=== PATIENT | female | born 1955 | race Caucasian/White ===

== ENCOUNTER 2022-09-24 14:46 | Outpatient (CLI) | payer MEDICARE, BC, SELFPAY | END 2022-09-24 14:47 | disposition home or self-care (01) | PROVIDERS: PCP Family Medicine; Visit Provider Family Medicine | DX: I47.1 Supraventricular tachycardia (principal); I51.7 Cardiomegaly; I34.0 Nonrheumatic mitral (valve) insufficiency | CPT/HCPCS: 93306 ==

== ENCOUNTER 2022-11-02 20:02 | Emergency (ER) | payer MEDICARE, BC, SELFPAY ==
[2022-11-02 20:15] VITALS: BP 142/81; PULSE 67; O2SAT 100; BMI 24.0
[2022-11-02 20:41] VITALS: BP 168/82
--- NOTE | 2022-11-02 20:41 | CRLHL7_ITS ---
For Patients: As a result of the Cures Act, medical imaging exams and procedure reports are released immediately into your electronic medical record. You may view this report before your referring provider. If you have questions, please contact your health care provider. INDICATION: Tachycardia. TECHNIQUE: Chest 2 views. COMPARISON: None. FINDINGS: Lungs: Normal lung volume. No consolidation. The tracheobronchial tree and hilar structures are unremarkable. Pleura: No pleural effusion or pneumothorax. Heart and Mediastinum: Normal heart size. The great vessels of the thorax are unremarkable. Bones: No acute displaced osseous process. IMPRESSION: No consolidation. Dictated by Sahil Banda MD @ 11/02/2022 9:14:50 PM (Electronically Signed)
[2022-11-02 20:52] LABS: Basophils Absolute Auto 0.03 K/uL (0.00-0.30); Basophils Percent Auto 0.4 % (0.0-3.0); Eosinophils Absolute Auto 0.13 K/uL (0.00-0.50); Eosinophils Percent Auto 1.8 % (0.0-7.0); Hematocrit 45.6 % (33.0-51.0); Hemoglobin* 15.5 gm/dL (12.0-16.0); Immature Granulocytes Abs Auto 0.01 K/uL (0.00-0.30); Immature Granulocytes Pct Auto 0.1 %; Lymphocytes Percent Auto 45.3 % (20-44); Mean Corpuscular HGB Conc 34 gm/dL (32-36); Mean Corpuscular Hemoglobin 33 pg (26-34); Mean Corpuscular Volume 97 fL (80-100); Monocytes Percent Auto 8.5 % (0.0-11.0); Neutrophils Absolute Auto 3.14 K/uL (1.7-7.0); Neutrophils Percent Auto 43.9 % (42.0-72.0); Platelet Count* 256 K/uL (140-440); RDW Coefficient of Variation % 12.8 % (11.5-15.5); Red Blood Count 4.71 m/uL (4.00-5.20); White Blood Count* 7.17 K/uL (4.50-11.00)
[2022-11-02 21:03] LABS: Slide Review Reflex No
[2022-11-02 21:04] LABS: INR 0.81 (0.91-1.10); Partial Thromboplastin Time* 29 Seconds (23-33); Prothrombin Time 11.7 Seconds
[2022-11-02 21:06] LABS: D Dimer Quantitative* 0.38 ug/ml (0.00-0.50)
[2022-11-02 21:22] LABS: Chloride* 104 mmol/L (96-114); Potassium* 4.2 mmol/L (3.6-5.1); Sodium* 138 mmol/L (135-149)
[2022-11-02 21:24] LABS: Creatinine* 0.7 mg/dL (0.5-1.5); Estimated Glomerular Filt Rate 94 ml/min
[2022-11-02 21:25] LABS: Blood Urea Nitrogen* 30 mg/dL (7-30); Calcium* 9.6 mg/dL (8.4-10.6); Carbon Dioxide* 25 mmol/L (20-32); Glucose* 109 mg/dL (60-115)
[2022-11-02] MEDS: 0.9 % SODIUM CHLORIDE 1000 ml 1,000 ML IV (21:30)
[2022-11-02] MEDS: dilTIAZem 5 MG/ML inj 10 MG IVP (21:31)
[2022-11-02 21:37] LABS: NT Pro B Type NatriureticPept* 202 pg/mL
[2022-11-02 21:42] LABS: Magnesium* 2.2 mg/dL (1.5-2.6)
[2022-11-02 21:43] LABS: PCR FLU A Negative PCR FLU A (Negative); PCR FLU B Negative PCR FLU B (Negative); PCR RSV Negative PCR RSV (Negative)
--- NOTE | 2022-11-02 21:45 | ED_ITS ---
HPI - Arrhythmia/Palpitations General Date Seen: 11/02/22 Chief Complaint: Arrhythmia/Palpitations Stated Complaint: heart rate above 140 for over an hour Time Seen by Provider: 11/02/22 20:13 Source: patient and family Mode of arrival: ambulatory Limitations: no limitations History of Present Illness HPI narrative: Patient is a very nice 58-year-old female presents here for evaluation of an arrhythmia, this occurred last hour and a half, but promptly converted when she walked over to the gurney and stabilization room 1. She has had this approximately 5 times since August 10 of this year, is due to see cardiology in [facility] on November 11, she has had the echocardiogram done in his o patch, she has never had to have conversion as she has always been able to convert herself. Denies any chest pain with this shortness of breath, she has had no fevers chills or sweats, denies no real excessive a history of alcohol use. Nonsmoker, has no other risk factors for coronary artery disease, denies taking any cold medications, no history of any illicit substances, and this occurred during rest. MD complaint: rapid heart beat, heart racing and palpitations Onset (ago): minute(s) (90) Duration: now resolved Severity: moderate Context: occurred during rest Arrhythmia history: SVT Associated symptoms: denies other symptoms Related Data Home Medications Medication Instructions Recorded Confirmed calcium 600 mg capsule mg PO 11/02/22 denosumab 60 mg/mL subcutaneous 60 mg subcut [id number] 11/02/22 11/02/22 syringe (Prolia) Previous Rx's Medication Instructions Recorded metoprolol tartrate 25 mg tablet 25 mg PO BID #60 tabs 11/02/22 Allergies Allergy/AdvReac Type Severity Reaction Status Date / Time terconazole [From Terazol 3] Allergy Unknown Verified 11/02/22 20:20 Review of Systems Status of ROS: Reports: 10 or more systems reviewed and unremarkable except as noted in History and below Exam Narrative: Exam Narrative: On examination in room 3 she appears to be in no apparent distress, she is alert oriented, in no apparent distress, pupils are equal round reactive to light there is no scleral icterus or JVP is flat carotid upstrokes are good. Cranial nerves 3-12 are normal her chest is good air entry bilaterally with no wheezing crackles noted heart sounds no clicks murmurs or gallops her abdomen is soft and obese there is no guarding no hepatosplenomegaly. Extremities reveal no swelling no pitting edema, she otherwise feels fine. Vital signs are reviewed. Const: Vital Signs, click to edit/add: Vital Signs - 24 hr 11/02/22 20:15 11/02/22 21:54 11/02/22 20:41 Pulse Rate [Pulse Oximeter] 67 57 L Respiratory Rate 16 Blood Pressure [Le ft Upper Arm] 142/81 H 142/81 H 168/82 H Pulse Oximetry 100 99 Oxygen Delivery Me thod Room Air Room Air 11/02/22 22:58 Pulse Rate [Pulse Oximeter] 60 Respiratory Rate 10 L Blood Pressure [Le ft Upper Arm] 126/68 Pulse Oximetry 99 Oxygen Delivery Me thod Documenting provider has reviewed patient's vital signs: yes Course Course Hospital Course: Discussed with the patient, we will give her a dose of diltiazem here, this will keep her heart rate down, I think this is more likely PSVT but I did noted in his Zio patch history that there was 5 beats of V-tach, she may benefit as an outpatient to use some beta-fina, we will give her some fluids here, and I wi ll discuss with her. She was a little leery early on when I discussed with her the use of beta-blockers as it can make her tired, and there is a remote history I believe in the past of reactive airway disease. I will talk with her about this. After discussion with the patient, shared decision making was undertaken, and she would like to try a beta fina, metoprolol 25 mg p.o. b.i.d. after the risks benefits and side effects as discussed with her OB prescribed. She can start taking this tomorrow, she will return if any further issues, keep her Cardiology appointment. Vital Signs Vital signs: Initial Vital Signs Temperature Source Temporal Artery Scan 11/02/22 20:15 Pulse Rate 67 11/02/22 20:15 Blood Pressure 142/81 H 11/02/22 20:15 Blood Pressure Mean 101 11/02/22 20:15 Blood Pressure Position Supine 11/02/22 20:15 Pulse Oximetry 100 11/02/22 20:15 Oxygen Delivery Method Room Air 11/02/22 20:15 Vital Signs Pulse Rate 67 11/02/22 20:15 Blood Pressure 142/81 H 11/02/22 20:15 Pulse Oximetry 100 11/02/22 20:15 Oxygen Delivery Method Room Air 11/02/22 20:15 Pulse Rate 60 11/02/22 22:58 Respiratory Rate 10 L 11/02/22 22:58 Blood Pressure 126/68 11/02/22 22:58 Pulse Oximetry 99 11/02/22 22:58 Oxygen Delivery Method Room Air 11/02/22 21:54 MDM - Arrhythmia/Palpitations MDM Narrative Medical decision making narrative: Differential diagnosis includes but is not limited to psychosocial stress, thyroid abnormalities, CHF, SVT, atrial fibrillation, ventricular tachycardia and ventricular fibrillation. This includes the life-threatening complications of heart failure, V-tach, and VFib Medical Records Attestation: I reviewed the patient's medical records. Medical records narrative: I reviewed the records from [facility], her echo was structurally normal, with trace mitral regurgitation she had a Zio patch done which showed episodes of SVT, and 1 5 beat ventricular tachycardia, Lab Data Attestation: I reviewed the patient's lab results. Labs: Lab Results 11/02/22 11/02/22 11/02/22 Range/Units 20:18 20:21 20:49 WBC 7.17 (4.50-11.00) K/uL RBC 4.71 (4.00-5.20) m/uL Hgb 15.5 (12.0-16.0) gm/dL Hct 45.6 (33.0-51.0) % MCV 97 (80-100) fL MCH 33 (26-34) pg MCHC 34 (32-36) gm/dL RDW Coeff of Suzanne 12.8 (11.5-15.5) % Plt Count 256 (140-440) K/uL Neut % (Auto) 43.9 (42.0-72.0) % Lymph % (Auto) 45.3 H (20-44) % [place] % (Auto) 8.5 (0.0-11.0) % Eos % (Auto) 1.8 (0.0-7.0) % Baso % (Auto) 0.4 (0.0-3.0) % Neut # (Auto) 3.14 (1.7-7.0) K/uL Lymph # (Auto) 3.20 H (0.90-2.90) K/uL [place] # (Auto) 0.60 (0.00-0.90) K/UL Eos # (Auto) 0.13 (0.00-0.50) K/uL Baso # (Auto) 0.03 (0.00-0.30) K/uL INR 0.81 L (0.91-1.10) APTT 29 (23-33) Seconds D-Dimer Quant (PE/DVT) 0.38 (0.00-0.50) ug/ml Sodium 138 (135-149) mmol/L Potassium 4.2 (3.6-5.1) mmol/L Chloride 104 (96-114) mmol/L Carbon Dioxide 25 (20-32) mmol/L BUN 30 (7-30) mg/dL Creatinine 0.7 (0.5-1.5) mg/dL Estimated Creat Clear 46.50 Estimated GFR 94 ml/min Glucose 109 (60-115) mg/dL Calcium 9.6 (8.4-10.6) mg/dL Magnesium 2.2 (1.5-2.6) mg/dL NT-Pro-B Natriuret Pep 202 pg/mL TSH 3.040 (0.270-4.20) uIU/mL SARS-CoV-2 (PCR) Negative SARS-CoV-2 (Negative) Influenza Type A (PCR) Negative PCR FLU A (Negative) Influenza Type B (PCR) Negative PCR FLU B (Negative) RSV (PCR) Negative PCR RSV (Negative) POC Troponin I 0.00 L (0.01-0.04) ng/ml 11/02/22 Range/Units 22:31 WBC (4.50-11.00) K/uL RBC (4.00-5.20) m/uL Hgb (12.0-16.0) gm/dL Hct (33.0-51.0) % MCV (80-100) fL MCH (26-34) pg MCHC (32-36) gm/dL RDW Coeff of Suzanne (11.5-15.5) % Plt Count (140-440) K/uL Neut % (Auto) (42.0-72.0) % Lymph % (Auto) (20-44) % [place] % (Auto) (0.0-11.0) % Eos % (Auto) (0.0-7.0) % Baso % (Auto) (0.0-3.0) % Neut # (Auto) (1.7-7.0) K/uL Lymph # (Auto) (0.90-2.90) K/uL [place] # (Auto) (0.00-0.90) K/UL Eos # (Auto) (0.00-0.50) K/uL Baso # (Auto) (0.00-0.30) K/uL INR (0.91-1.10) APTT (23-33) Seconds D-Dimer Quant (PE/DVT) (0.00-0.50) ug/ml Sodium (135-149) mmol/L Potassium (3.6-5.1) mmol/L Chloride (96-114) mmol/L Carbon Dioxide (20-32) mmol/L BUN (7-30) mg/dL Creatinine (0.5-1.5) mg/dL Estimated Creat Clear Estimated GFR ml/min Glucose (60-115) mg/dL Calcium (8.4-10.6) mg/dL Magnesium (1.5-2.6) mg/dL NT-Pro-B Natriuret Pep pg/mL TSH (0.270-4.20) uIU/mL SARS-CoV-2 (PCR) (Negative) Influenza Type A (PCR) (Negative) Influenza Type B (PCR) (Negative) RSV (PCR) (Negative) POC Troponin I 0.00 L (0.01-0.04) ng/ml Imaging Data Chest x-ray: My impression: No acute finding Radiologist's impression: Patient: TISHA WHARTON Facility: [facility] Site . Site : 1955 Study: XRay Chest 2 VIEW-11/02/2022 9:10:28 PM Ordering Physician: Kanika Lawton Final Report: INDICATION: Tachycardia. TECHNIQUE: Chest 2 views. COMPARISON: None. FINDINGS: Lungs: Normal lung volume. No consolidation. The tracheobronchial tree and hilar structures are unremarkable. Pleura: No pleural effusion or pneumothorax. Heart and Mediastinum: Normal heart size. The great vessels of the thorax are unremarkable. Bones: No acute displaced osseous process. IMPRESSION: No consolidation. Dictated by Sahil Banda MD @ 11/02/2022 9:14:50 PM (Electronic Signature) ECG Data Attestation: I personally reviewed and interpreted this ECG as follows: ECG interpretation date: 11/02/22 Prior ECG tracings: not available for review Interpretation: EKG shows normal sinus rhythm with an incomplete run no bundle bunch block, rate is 68. Discharge Plan Discharge Clinical Impression: Palpitations, Supraventricular tachycardia Patient Disposition: Home w/ Parent or Adult Condition: Stable Instructions: Supraventricular Tachycardia (ED), Heart Palpitations (DC) Additional Instructions: Home rest follow-up with the Cardiology, start taking your medication medication tomorrow. Return if signs and symptoms of worsening. Activity Level: No Restrictions Discharge Diet: Regular Prescriptions: New metoprolol tartrate 25 mg tablet 25 mg PO BID Qty: 60 2RF No Action Prolia 60 mg/mL syringe 60 mg subcut [id number] calcium 600 mg capsule PO Follow Up/Referrals: Ade Gomez DO [Primary Care Provider] - Stand Alone Forms: MyHealth Info Instructions
[2022-11-02 21:47] LABS: SARS PCR* Negative SARS-CoV-2 (Negative)
[2022-11-02 21:54] VITALS: BP 142/81; PULSE 57; RESP 16; O2SAT 99
[2022-11-02 22:58] VITALS: BP 126/68; PULSE 60; RESP 10; O2SAT 99
== END 2022-11-02 23:35 | disposition home or self-care (01) ==
PROVIDERS: Emergency Provider Family Medicine; PCP Family Medicine
DX: I47.1 Supraventricular tachycardia (principal); R00.2 Palpitations
CPT/HCPCS: 36415; 71046; 80048; 83735; 83880; 84443; 84484; 85025; 85379; 85610; 85730; 87502; 87634; 87635; 93005; 96374; 99284; 99285; J7030

== ENCOUNTER 2023-06-29 07:31 | Outpatient (CLI) | payer MEDICARE, BC, SELFPAY ==
--- NOTE | 2023-06-29 09:10 | W.ANESCHARGE ---
Anesthesia Charges Start Date/Time Anesthesia Start Date: 06/29/23 Anesthesia Start Time: 08:31 Stop Date/Time Anesthesia Stop Date: 06/29/23 Anesthesia Stop Time: 09:07
--- NOTE | 2023-06-29 09:47 | W.ANESCHARGE ---
Anesthesia Charges Start Date/Time Anesthesia Start Date: 06/29/23 Anesthesia Start Time: 08:31 Stop Date/Time Anesthesia Stop Date: 06/29/23 Anesthesia Stop Time: 09:07
== END 2023-06-29 07:32 | disposition home or self-care (01) ==
LOC: OP CLINIC 07:32
PROVIDERS: PCP Family Medicine; Visit Provider Internal Medicine Gastroenterology
DX: Z12.11 Encounter for screening for malignant neoplasm of colon (principal); Q43.8 Other specified congenital malformations of intestine; Z86.010 Personal history of colon polyps
CPT/HCPCS: 00811; 00812; 45378; J2704

== ENCOUNTER 2024-05-05 07:20 | Outpatient (RCR) | payer MEDICARE, BC, SELFPAY | END 2024-06-16 08:47 | disposition home or self-care (01) | PROVIDERS: PCP Family Medicine; Visit Provider Family Medicine | DX: S32.592D Other specified fracture of left pubis, subsequent encounter for fracture with routine healing (principal); S70.02XD Contusion of left hip, subsequent encounter; M25.552 Pain in left hip; M26.81 Anterior soft tissue impingement; Z51.89 Encounter for other specified aftercare | CPT/HCPCS: 97161 ==

== ENCOUNTER 2024-06-28 14:00 | Outpatient (CLI) | payer MEDICARE, BC, SELFPAY ==
--- OUTSIDE RECORDS SUMMARY | 2024-06-28 14:02 | XMS_ITS | Clinical Summary ---
Author Organization [facility] Address [address] [address] Phone Care Team Providers Care Office Clin Asst Name Role Phone Unavailable Primary Care Provider Unavailabl e Allergies Active Allergy Reactions Criticality Noted Date Comments Terconazole Pruritis Medium 02/24/2024 Social History Tobacco Use Types Packs/Day Years Used Date Smoking Tobacco: Never Smokeless Tobacco: Never Tobacco Cessation:Counseling Given: Not Answered Comments Unknown Sex and Gender Information Value Date Recorded Sex Assigned at Not on file Legal Sex Female 12:51 PM CDT Gender Identity Not on file Sexual Orientation Not on file Obstetrics History Last Filed Vital Signs Vital Sign Reading Time Taken Comments Blood Pressure 124/72 02/24/2024 1:29 PM CDT Pulse 66 02/24/2024 1:29 PM CDT Temperature 37.2 C (98.9 F) 02/24/2024 1:29 PM CDT Respiratory Rate - - Oxygen Saturation 98% 02/24/2024 1:29 PM CDT Inhaled Oxygen Concentration - - Weight 73.4 kg (161 lb 13.1 oz) 02/24/2024 1:29 PM CDT Height - - Body Mass Index - - Plan of Treatment Health Maintenance Due Date Last Done Comments CT Colonography 1955 Cologuard 1955 Colonoscopy 1955 Colorectal Cancer Screening 1955 FIT/FOBT 1955 MAMMO,SCREEN 1955 MEDICARE AWV 1955 Sigmoidoscopy 1955 PERTUSSIS (Standing Order) 1972 TETANUS (Standing Order) 1972 Shingrix (Zoster recombinant ) vaccine (Standing Order) (1 of 2) 11/06/2003 DXA,FEMALES AGE 65 OR GREATER 2018 Pneumococcal Vaccine: 65+ yr s (Standing Order) (1 of 1 - PCV) 2018 COVID-19 Vaccine ( - 2023-2 5 season) 2024 Influenza Vaccine Seasonal (Standing Order) (#1) 2024 RSV Vaccination (60+ yrs) (Abrysvo/Arexvy) (1 - 1-dose 75+ series) 2028 HPV Vaccine (Standing Order) Aged Out No longer eligible based on patient's age to complete this topic Hepatitis B Vaccine (Standin g Order) Aged Out No longer eligible b ased on patient's age to complete this topic Insurance MEDICARE COST PART A&B [employer] [place] [address]
--- OUTSIDE RECORDS SUMMARY | 2024-06-28 14:02 | XMS_ITS | Clinical Summary ---
Author Organization [facility] Address [address] [place] [address] Care Team Providers Care Ticket Taker [place] Name Role Phone Unavailable Primary Care Provider Unavailabl e Source Comments Patient records contain information from all sites at [facility]. For routine questions regarding patient records, call [phone] during business hours, M-F 8:00 AM - 5:00 PM Central Time. Record requests for emergency care only can be directed to [phone] at any time.[facility] Allergies Active Allergy Reactions Criticality Noted Date Comments Terconazole Rash Low 06/11/2007 Medications * This document contains information received from the source organization and may not represent a complete record from that organization. calcium carbonate-vitam in D3 1,500 mg (600 mg calcium)-10 mcg (400 Unit) per tablet Take 1 tablet by mouth 2 (two) times a day. 9 Active denosumab (PROLIA) 60 mg/mL syringe Inject 60 mg under the skin as directed. 2 TIMES A YEAR - 3 Active fluticasone propionate (FLONASE) 50 mcg/actuation nasal spray Administer 2 sprays into nostril(s) at bedtime as needed for allergies or rhinitis. 4 Active Active Problems Problem Noted Date Diagnosed Date Osteoporosis 09/23/2022 Encounters Date Type Department Care Team Description 04/21/2024 9:00 AM CDT Infusion Department of Infusion Therapy in [place], [place] [address] [place] [address] Troy Landry M.D. Osteoporosis (Primary Dx) from Last 3 Months Social History Tobacco Use Types Packs/Day Years Used Date Smoking Tobacco: Never Smokeless Tobacco: Never Tobacco Cessation:Counseling Given: Not Answered [facility] Utilities Answer Date Recorded In the past 12 months has th e [employer], gas, oil, or water [employer] threatened to shut off services in your home? No 10/13/2023 Exercise Vital Sign Answer Date Recorde d On average, how many days pe r week do you engage in moderate to strenuous exercise (like a brisk walk)? 5 days 10/13/2023 On average, how many minutes do you engage in exercise at this level? 40 min 10/13/2023 Hunger Vital Sign Answer Date Recorded Within the past 12 months, y ou worried that your food would run out before you got the money to buy more. Never true 10/13/19 Within the past 12 months, t he food you bought just didn't last and you didn't have money to get more. Never true 10/13/2023 PRAPARE - Transportation Answer Date Re corded In the past 12 months, has l ack of transportation kept you from medical appointments or from getting medications? No 12/2023 In the past 12 months, has l ack of transportation kept you from meetings, work, or from getting things needed for daily living? No 10/13/2023 Nutrition Answer Date Recorded Nutrition: EVOO Fat Source Unknown 10/12 On average, how many serving s of fruits and vegetables do you eat per day (serving size is equal to 1 cup or approximately the size of a tennis ball)? 3-5 10/13/2023 Dental Answer Date Recorded Dental: Regular Dentist Yes 10/13/19 Employment Answer Date Recorded Employment status Employed and actively working without restrictions 10/13/2023 Housing Stability Answer Date Recorded What is your living situation today? 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 Legal Sex Female 4:58 AM TRIPE FINISHER Gender Identity Female 10/18/2022 12:19 PM TRIPE FINISHER Sexual Orientation Straight 10/18/2022 12 :19 PM TRIPE FINISHER Last Filed Vital Signs Vital Sign Reading Time Taken Comments Blood Pressure 116/59 10/20/2023 3:12 PM CDT Pulse 58 10/20/2023 3:12 PM CDT Temperature 36.5 C (97.7 F) 10/20/2023 3:12 PM CDT Respiratory Rate 16 10/20/2023 3:12 PM CDT Oxygen Saturation - - Inhaled Oxygen Concentration - - Weight 70.1 kg (154 lb 8.7 oz) 10/20/2023 2:24 P M CDT Height 163.6 cm (5' 4.41) 10/20/2023 2:24 PM CD T Body Mass Index 26.19 10/20/2023 2:24 PM CDT Plan of Treatment Health Maintenance Due Date Last Done Comments CT Colonography 1955 Cologuard 1955 FIT 1955 Hepatitis C Screening 1955 Depression Screening (Annual PHQ-2) 08/10/2023 COVID-19 Vaccine ( season) 2024 09/19/2020, 08/23/2020 Influenza Vaccine (#1) 2024 , 05/28/2022, 05/27/2021, Additional history exists Mammogram 10/27/2024 10/28/2023, 10/09, 10/14/2022, Additional history exists Fasting Glucose for Diabetes Screening 10/28/2026 10/29/2023, 12/19/2022, 09/01/2022, Additional history exists DTaP,Tdap,and Td Vaccines (3 - Td or Tdap) 06/29/2028 06/29/2018, 07/25/2008 Colonoscopy 06/29/2033 06/29/2023 Colorectal Cancer Screening 06/29/2033 Zoster Vaccines Completed 07/11/2019, 01/08, 06/08/2013 Pneumococcal vaccine (65+ years) Completed 2022, 09/15/2019 Bone Density Scan (Osteoporosis Screen) Discontinued 10/20/2023 Fall Risk Screen (Annual) Completed 04/21/2024 IPV Vaccines Aged Out No longer eligi ble based on patient's age to complete this topic Medical Devices Implanted Type Area Director Of Restaurants Device Identifier Shelf Expiration Date Model / Serial / Lot Ear Tubes (E.G. Pe Tubes)- 5 Implanted:08/1994 (Quantity not on file) Ear Tubes (e.g. PE Tubes) Bilateral : Ear Description:Took out the Sta pes Bone in each Ear and replaced with Tubes - Insurance [facility] MEDICARE
--- OUTSIDE RECORDS SUMMARY | 2024-06-28 14:02 | XMS_ITS | Clinical Summary ---
Author Organization [employer] [facility] [employer] [facility] Address [place], [place] [address] Care Team Providers Care Pulmonary Nurse Practitioner Name Role Phone Ade Gomez DO Primary Care Provider [phone] Allergies Active Allergy Reactions Criticality Noted Date Comments Terconazole Rash 06/11/2007 Medications Medication Sig Dispensed Refills Start Date End Date Status CALCIUM 600 + D(3) 600 MG-400 UNIT TAB Take one tablet twice a day. 0 05/22/2009 Active denosumab (PROLIA) 60 mg/mL injection Inject 60 mg subcutaneous EVERY 26 WEEKS. Started on 10/10/22 1 mL 11/26/2022 Active fluticasone (50 mcg per actuation) nasal solution (FLONASE)Indication s:PND (post-nasal drip) Inhale 2 Sprays to both nostrils once daily if needed for Rhinitis. 08/18/2023 Active Active Problems Problem Noted Date Diagnosed Date Sick sinus syndrome 09/03/2023 RBBB 08/18/2023 SVT (supraventricular tachycardia) 04/14/2023 Sinus bradycardia 04/14/2023 Hyperprolactinemia 09/29/2020 Osteoporosis 07/31/2017 Overview (07/31/2017): 2011 osteopenia. 07/2017 osteoporosis. Recommend bisphosphonate. See mychart message Knee osteoarthritis 09/01/2014 Groin mass 08/30/2014 Chest pain, unspecified 10/17/2010 Overview (10/17/2010): Stress echo 2002 normal Colon polyp 01/24/2010 Overview (06/29/2023): Colonoscopy 01/2010 large polyp repeat in 4-6 months Colonoscopy 06/2010 polyps repeat in 3 years Colonoscopy 06/2013 normal repeat in 5 years Colonoscopy 06/2018 polyps, repeat in 5 years, propofol, adult scope Colonoscopy 06/2023 normal, long colon, repeat in 5 years, propofol, adult scope FH: colon polyps 08/21/2009 Overview (08/21/2009): Colonoscopy 2004 - follow up in 5 years healthcare maintenence 07/25/2008 Overview (03/29/2012): Last Pap: 10/17/2010 Last Mammo: 10/09/2011 Last Bone Density: 07/27/2008 Colonoscopy: 06/14/2010 Lipids CHOL 226 10/21/2010 7:53 AM TRIGLYCERIDE 46 10/21/2010 7:53 AM HDL 77 10/21/2010 7:53 AM LDLCHOL 140 10/21/2010 7:53 AM Glucose TSH 2.65 10/21/2010 Immunization History Administered Date(s) Administered Hepatitis A (Adult) 04/04/2002 06/20/2003 Hepatitis B (Adult) 12/10/1989 01/15/1990 07/15/1990 Influenza A (H1N1), Inactivated (Age >=3 Years) 06/13/2009 Influenza, Inactivated (Age >=3 years) 05/09/2009 Td (Age >=7 Years) 01/08/1999 Tdap 07/25/2008 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 Tachycardia Overview (11/21/2014): SVT, treated with atenolol Closed fracture of distal en d of tibia, unspecified fracture morphology, initial encounter Osteochondral defect of talus Resolved Problems Problem Noted Date Diagnosed Date Resolved Date Lateral epicondylitis of elbow 01/25/2008 09/01/2014 Encounters Date Type Department Care Team Description 06/15/2024 Medical Messaging [facility] [address] [place] [address] Dane Hester MD Shoulder 04/14/2024 11:20 AM CDT Office Visit [facility] [address] [facility] [address] Dane Hester MD Musculoskeletal Problem (Follow-up Pelvic fracture DOI: 02/20/2024) 04/14/2024 Travel from Last 3 Months Immunizations Name Administration Dates Next Due COVID-19 vaccine ([employer] NTech 30mcg/0.3mL) MD ANILV 09/19/2020,08/23/2020 Hepatitis A (Adult) 06/20/2003,04/04/2002 Hepatitis B (Adult) 07/15/1990,01/15/1990,1989 Influenza A (H1N1), Inactiva sondra (Age >=3 Years) 06/13/2009 Influenza, High-dose Inactivated 05/21/2020,05/1005/09/2020 Influenza, IIV3 (Age >=3 years) 05/08/2016,05/09 Influenza, IIV4 06/03/2023,,05/04/2018,05/28 Influenza, Inactivated AIIV4 (Age 65+ Years) Preserv Free 05/28/2022,05/09/2020 Influenza, Inactivated IIV3 (Age 65+ Years) Preserv Free 05/19/2019 Influenza,CCIIV4 PRESERV FREE 05/04/2018 Pneumococcal Conj 20-valent (Prevnar 20) 2022 Pneumococcal Poly,23-Valent (Pneumovax) 09/15/2019 Td (Age >=7 Years) 06/29/2018,01/08/1999 Tdap 07/25/2008 Tuberculin (PPD) 04/14/2000,01/21/2000 Zoster (Shingrix-RZV, recombinant) 07/11/2019, Zoster (Zostavax-ZVL, live) 06/08/2013 Family History Medical History Relation Name Comments Cancer Brother pancreatic Hypertension Father Cancer-breast Maternal Aunt 1 x 3 Cancer Maternal Aunt 2 ovarian Cancer-prostate Maternal Grandfather Hypertension Mother Cancer-colon Paternal Grandfather in his 60's Stroke Paternal Grandfather Cancer Paternal Grandmother kidney Cancer Paternal Uncle pancreatic Cancer-colon Paternal Uncle Cancer-ovarian No Family History Relation Name Status Comments Brother Father (Age 88.5) Maternal Aunt 1 Maternal Aunt 2 Maternal Grandfather Mother Alive Paternal Grandfather Paternal Grandmother Paternal Uncle Social History Tobacco Use Types Packs/Day Years Used Date Smoking Tobacco: Never Smokeless Tobacco: Never Tobacco Cessation:Counseling Given: Yes Alcohol Use Standard Drinks/Week Comments Yes 1 (1 standard drink = 0.6 oz pur e alcohol) PHQ-2 Answer Date Recorded PHQ-2 TOTAL SCORE 0 10/29/2023 Social Connections Answer Date Recorded Do you often feel lonely or isolated from those around you? 0 09/03/2023 Alcohol Use Answer Date Recorded How often do you have a drink containing alcohol ? 4 06/25/2023 How many drinks containing a lcohol do you have on a typical day when you are drinking? 0 06/25/2023 How often do you have five or more drinks on one occasion? 0 06/25/2023 Financial Resource Strain Answer Date R ecorded Difficulty of Paying Living Expenses 3 09/03/2023 Difficulty of Paying Living Expenses Not on file 09/03/2023 Food Insecurity Answer Date Recorded Do you worry your food will run out before you are able to buy more? 1 09/03/2023 Transportation Needs Answer Date Record ed Does lack of transportation keep you from medica l appointments? 1 09/03/2023 Does lack of transportation keep you from work, meetings or getting things that you need? 1 09/03/2023 Housing Stability Answer Date Recorded What is your housing situation today? 1 09/03/2023 Sex and Gender Information Value Date Recorded Sex Assigned at Not on file Gender Identity Not on file Sexual Orientation Not on file Obstetrics History Para Term AB IAB SAB Ectopic Multiple Livin g Live Births 3 2 2 0 1 0 1 0 0 2 2 Date Outcome GA Total Labor Labor/2nd/3rd Weight Sex Type Anes PTL Vanda A1 A5 Name Clin Term Living Term Living SAB Last Filed Vital Signs Vital Sign Reading Time Taken Comments Blood Pressure 108/74 04/14/2024 11:29 AM CDT Pulse 68 04/14/2024 11:29 AM CDT Temperature 36.7 C (98 F) 04/14/2024 11:29 AM CDT Respiratory Rate 18 12/19/2022 5:15 PM CDT Oxygen Saturation 98% 04/14/2024 11:29 AM CDT Inhaled Oxygen Concentration - - Weight 68.9 kg (152 lb) 10/29/2023 7:59 AM CDT Height 162.6 cm (5' 4) 10/29/2023 7:59 AM CDT Body Mass Index 26.09 10/29/2023 7:59 AM CDT Plan of Treatment Health Maintenance Due Date Last Done Comments COVID-19 vaccine series ( season) 2024 09/19/2020, 08/23/2020 Influenza for age 65+ 04/10/2024 06/03/2023 , 05/28/2022, 05/27/2021, Additional history exists Mammogram for age 45-75 10/27/2024 10/28/19, 10/14/2022, 10/10/2021, Additional history exists BMI (ht and wt on same day) for age 18+ 10/28/2024 10/29/2023, 08/18/2023, 06/25/2023, Additional history exists Depression screening for age 12+ 10/28/2024 10/29/2023, 12/25/2022, 10/10/2021, Additional history exists Medicare Wellness for age 65+ 10/29/2024, 2022, 10/10/2021, Additional history exists Colonoscopy through age 75 06/29/202806/29, 06/29/2023, 06/29/2023, Additional history exists Tetanus booster 06/29/2028 06/29/2018, 07/10, 01/08/1999 Lipids for age 45-75 10/28/2028 10/29/2023, 12/03/2022, 10/10/2021, Additional history exists Tdap Completed 07/25/2008 Hepatitis C screening for ag e 18-79 Completed 06/29/2018 Zoster (shingles) series for age 50+ Completed 07/11/2019, 01/20/2019, 06/08/2013 DEXA/DXA scan for age 65+ Completed 2021, 07/28/2019, 07/23/2017, Additional history exists Pneumococcal series for age 65+ Completed 3, 09/15/2019 Medical Devices Implanted Type Area Health Aid Device Identifier Shelf Expiration Date Model / Serial / Lot Injectable Macroporous Calcium Phosphate Implanted:Qty: 1 on 01/05/2020 by Guillermo Metzger DPM at [facility] Ortho Implants, Misc. Right: Ankle [employer] 08/20/2020 / / [id number] Procedures Procedure Name Priority Date/Time Associated Diagnosis Comments LIPID PANEL W REFLEX MEASURED LDL Routine 10/29/2023 9:12 AM CDT Hyperlipidemia, unspecified hyperlipidemia type XR MAMMO KARYN BILAT SCREEN Routine 10/28/2023 11:32 AM CDT Visit for screening mammogram COLONOSCOPY SCREENING Routine 06/29/2023 12:00 AM CHIEF EXECUTIVE OFFICER History of colon polyps XR DXA BONE DENSITY 2 SITES AXIAL Routine 08/05/2022 10:19 AM CHIEF EXECUTIVE OFFICER Osteoporosis, unspecified osteoporosis type, unspecified pathological fracture presence ANTI HCV Routine 06/29/2018 9:15 AM CHIEF EXECUTIVE OFFICER Need for hepatitis C screening test from Last 3 Months or Most Recently Relevant to Health Maintenance Results * (ABNORMAL) LIPID PANEL W REFLEX MEASURED LDL (10/29/2023 9:12 AM CDT) CHOLESTEROL,TOTAL 236(H) 100 - 199 mg/dL 10/29/2023 4:56 PM CDT [facility] Comment: Cholesterol, Total Reference Ranges Desirable <200 mg/dL Borderline 200-239 mg/dL High >=240 mg/dL TRIGLYCERIDES 80 <150 mg/dL 10/29/2023 4:56 PM CDT [facility] HDL CHOLESTEROL 86 >40 mg/dL 4 4:56 PM CDT [facility] NON-HDL CHOLESTEROL 150(H) <145 mg/dl 10/29/2023 4:56 PM CDT [facility] CHOL/HDL RATIO 2.74 <4.50 10/29/2023 4:56 PM CDT [facility] LDL CHOLESTEROL 134(H) <=130 mg/dL 10/29/2023 4:56 PM CDT [facility] VLDL CHOLESTEROL 16 <=30 mg/dL 10/29/2023 4:56 PM CDT [facility] PROVIDER ORDERED STATUS RANDOM 10/29/2023 4:56 PM CDT [facility] Blood BLOOD SPECIMEN / Unknown Venipuncture / Unknown 10/29/2023 9:12 AM CDT 10/29/2023 9:13 AM CDT Ade Gomez DO CHEMISTRY [facility] [address] [place] [address], * XR MAMMO KARYN BILAT SCREEN (10/28/2023 11:32 AM CDT) Anatomical Region Laterality Modality BREASTS, Breast Left, Breast Right Bilateral Mammography Impressions 10/28/2023 2:55 PM CDT There is no radiographic evidence for malignancy. Recommend annual mammograms. MAMMOGRAM ASSESSMENT: ACR 1 Negative PATIENTS: You will also receive a letter with your examination results in an easy to read format. If you have questions about your results, please contact your referring provider. Narrative 10/28/2023 2:55 PM CDT For Patients: As a result of the 21st Century Cures Act, medical imaging exams and procedure reports are released immediately into your electronic medical record. You may view this report before your referring provider. If you have questions, please contact your health care provider. XR MAMMO KARYN BILAT SCREEN [[id number]] CLINICAL HISTORY: This is an asymptomatic 67 y.o. patient. INDICATION FOR EXAM: Mammogram Screening. TECHNIQUE: CC & MLO views were obtained. This study was evaluated with the assistance of Computer-Aided Detection. Breast Tomosynthesis was used in interpretation. COMPARISON FILM: Yes 10/14/22 [facility] 10/10/21 [facility] FINDINGS: The breasts have scattered areas of fibroglandular density. There are no dominant masses, suspicious micro calcifications or areas of architectural distortion. Ade Gomez DO MAMMO * COLONOSCOPY SCREENING (06/29/2023 12:00 AM CHIEF EXECUTIVE OFFICER) Luis Yepez MD GI PROCEDURE ORD * (ABNORMAL) XR DXA BONE DENSITY 2 SITES AXIAL (08/05/2022 10:19 AM CHIEF EXECUTIVE OFFICER) Anatomical Region Laterality Modality Spine, HIPS, HIPL, HIPR Other Impressions 08/08/2022 1:42 PM CHIEF EXECUTIVE OFFICER Osteoporosis. RECOMMENDATIONS: The National Osteoporosis Foundation recommends pharmacologic treatment for patients with T-scores of -2.5 or less, patients with prior history of fragility fractures, or patients with 10-year probability of greater than 3% at hips or greater than 20% of suffering major osteoporotic fractures. Recommend continued optimization of calcium and vitamin D intake through dietary means and/or supplementation and regular exercise. Continue current Alendronate (Fosamax) medication treatment. Consider alternative treatment given decline despite fosamax treatment. Poonam Gannon PA-C [facility] 08/08/2022 Narrative 08/08/2022 1:42 PM CHIEF EXECUTIVE OFFICER For Patients: Results are automatically released to your [facility] ([employer]) account once available, in compliance with federal regulations. This means that you may see your results before your provider has had a chance to review them. Please allow 2-3 business days for your provider to comment on the results. XR DXA Bone Mineral Density (BMD) EXAM LOCATION: [facility] [address] [facility] [address] PATIENT NAME: Danette Lopez DATE OF : 1955 EXAM DATE: 08/05/2022 REQUESTING PROVIDER: Ade Gomez DO GENDER AT : female HEIGHT: 5' 4 (04/17/2022) WEIGHT: 151 lb (04/17/2022) MENOPAUSAL STATUS: Postmenopausal RACE/ETHNICITY: White RISK FACTORS: Family History of Osteoporosis, Family History of Hip Fracture (parental) and White Race CURRENT MEDICATION FOR BONE LOSS: D/C Alendronate (Fosamax)July INDICATION: Screening for osteoporosis COMPARISON DATE(S): 2019 DXA scans are compared to prior studies for a patient only when the two (or more) studies were performed on the same scanner. It is not possible to compare data generated on one scanner to data from another because there are not standards in DXA equipment. This applies even if the two scanners are made by the same tax compliance representative. PROCEDURE: Dual-energy x-ray absorptiometry performed with routine technique. Reporting is completed in the form of a T-score. The T-score represents the standard deviation from peak bone mass based on young healthy adult. A Z-score is used for diagnosis in premenopausal women, and for men under the age of 50. FINDINGS: RESULT LUMBAR SPINE L1 - L4 BMD: 1.070 g/cm2 T-Score: - 0.9 Z-Score: + 0.6 Change from prior in 2019: Decrease 4.1%. RESULTS FEMUR Left femoral neck BMD: 0.695 g/cm2 T-Score: - 2.5 Z-Score: - 0.9 Change from prior in 2019: Decrease 4.8%. Right femoral neck BMD: 0.700 g/cm2 T-Score: - 2.4 Z-Score: - 0.9 Change from prior DECREASE 2019 BY 0.7% Left hip BMD: 0.781 g/cm2 T-Score: - 1.8 Z-Score: - 0.5 Change from prior in 2019: Decrease 3.6%. Right hip BMD: 0.799 g/cm2 T-Score: - 1.7 Z-Score: - 0.4 Change from prior in 2019: Decrease 1.4%. WHO criteria: Normal: T-score at or above -1 SD Osteopenia: T-score between -1.1 and -2.4 SD Osteoporosis: T-score at or below -2.5 SD Ade Gomez DO DEXA * ANTI HCV [[id number]] (06/29/2018 9:15 AM CHIEF EXECUTIVE OFFICER) Pathologist [facility] HEPATITIS C ANTIBODY Non-React lina Non-React lina 06/29/2018 6:27 PM CHIEF EXECUTIVE OFFICER [facility] Comment:Antibodies to HCV no t detected; does not exclude the possibility of exposure to HCV. Blood BLOOD SPECIMEN / Unknown Venipuncture / Unknown 06/29/2018 9:15 AM CHIEF EXECUTIVE OFFICER 06/29/2018 9:15 AM CHIEF EXECUTIVE OFFICER Ade Maurer Patricia DO SEND OUTS [facility] [address] [place] [address], from Last 3 Months or Most Recently Relevant to Health Maintenance Advance Directives * Full Code (Latest Code Status on File) Date Activated Date Inactivated Comments 12/19/2022 1:34 PM 12/19/2022 7:31 PM Question Answer Comments Code Status Discussion: Other * Full Code Date Activated Date Inactivated Comments 01/05/2020 6:23 AM 01/05/2020 5:04 PM Question Answer Comments Code Status Discussion: Discussed * Full Code Date Activated Date Inactivated Comments 07/07/2016 8:15 AM 07/07/2016 4:09 PM Question Answer Comments Code Status Discussion: Not Discussed * Full Code Date Activated Date Inactivated Comments 08/30/2014 11:08 AM 08/30/2014 12:26 PM Care Teams Pulmonary Nurse Practitioner Relationship Specialty Start Date End Date Ade Gomez DO [address] [place] [address] PCP - General Family Practice 08/05/17
--- OUTSIDE RECORDS SUMMARY | 2024-06-28 14:02 | XMS_ITS | Encounter Summary ---
Author Organization [facility] Address [address] [place] [address] Care Team Providers Care Lpta Name Role Phone Unavailable Primary Care Provider Unavailabl e Reason for Visit * Reason Comments Injections * Episode Based Medications (Routine) - Authorized Specialty Diagnoses / Procedures Referred By Jayden son Referred To Contact Diagnoses Osteoporosis Troy Landry M.D. [address] [place] [phone] Phone: tel: fax: Division of Endocrinology in [place], [place] [address] [place] [phone] Phone: tel: fax: Referral ID Status Reason Start Date Expiration Date V isits Requested Visits Authorized [id number] Authorized 09/22/2023 09/21/2025 99 99 Encounter Details Date Type Department Care Team (Late st Contact Info) Description 04/21/2024 9:00 AM CDT Infusion Department of Infusion Therapy in [place], [place] [address] [place] [phone] Troy Landry M.D. [address] [place] [phone] Osteoporosis (Primary Dx) Social History Tobacco Use Types Packs/Day Years Used Date Smoking Tobacco: Never Smokeless Tobacco: Never [facility] Utilities Answer Date Recorded In the past 12 months has th e electric, gas, oil, or water company threatened to shut off services in your [...] money to buy more. Never true 10/13/19 24 Within the past 12 months, t he [...] Date Recorded Dental: Regular Dentist Yes 10/13/19 24 Employment Answer Date Recorded Employment status Employed and actively working without restrictions 10/13/2023 Housing Stability Answer Date Recorded What is your living situation today? I have a [facility] place to live 10/13/2023 Comments Unknown Sex and Gender Information Value Date Recorded Sex Assigned at Female 10/18/2022 12:19 PM SURGICAL ASST Legal Sex Female 4:58 AM SURGICAL ASST Gender Identity Female 10/18/2022 12:19 PM SURGICAL ASST Sexual Orientation Straight 10/18/2022 12 :19 PM SURGICAL ASST documented as of this encounter Plan of Treatment Not on file documented as of this encounter Visit Diagnoses Diagnosis Osteoporosis- Primary documented in this encounter Administered Medications Inactive Administered Medications - up to 3 most recent administrations Medication Order MAR Action Action Date Dose Rate Site denosumab injection 60 mg (Prolia) 60 mg, subcutaneous, Once, On Catherine 04/21/24 at 0945, For 1 dose, Restriction Criteria (Pharmacy will review and approve if criteria met): Prescribed by EndocrinologyIndications: Osteoporosis Given 04/21/2024 9:20 AM CDT 60 mg Right Upper Arm (Back) documented in this encounter
--- OUTSIDE RECORDS SUMMARY | 2024-06-28 14:02 | XMS_ITS ---
Author Organization [facility] Address [address] [place] [address] Care Team Providers Care Apprenticeship Consultant Name Role Phone Unavailable Unavailable Unavailable Surgery Details Not on file Complications Check Surgery Details section. Procedure Estimated Blood Loss Check Surgery Details section. Procedure Findings Check Surgery Details section. Procedure Specimens Taken Check Surgery Details section.
--- OUTSIDE RECORDS SUMMARY | 2024-06-28 14:02 | XMS_ITS | Referral Summary ---
Author Organization [facility] Address [address] [place] [address] Care Team Providers Care Senior Statistical Programmer Name Role Phone Unavailable Primary Care Provider Unavailabl e Source Comments Patient records contain information from all sites at [facility]. For routine questions regarding patient records, call [phone] during business hours, M-F 8:00 AM - 5:00 PM Central Time. Record requests for emergency care only can be directed to [phone] at any time.[facility] Encounters Date Type Department Care Team Description 04/21/2024 9:00 AM CDT Infusion Department of Infusion Therapy in [place], [place] [address] [place] [phone] Troy Landry M.D. Osteoporosis (Primary Dx) from Last 3 Months Allergies Active Allergy Reactions Criticality Noted Date [...] Problem Noted Date Diagnosed Date Osteoporosis 09/23/2022 Social History Tobacco Use Types Packs/Day Years Used Date Smoking Tobacco: Never Smokeless Tobacco: Never Tobacco Cessation:Counseling Given: Not Answered [facility] Utilities Answer Date Recorded In the past 12 months has th e [employer], gas, oil, or water [employer] threatened to shut off services in your [...] your living situation today? I have a [facility] place to live 10/13/2023 Comments Unknown Sex and Gender Information Value Date Recorded Sex Assigned at Female 10/18/2022 12:19 PM BODY CLEANER Legal Sex Female 4:58 AM BODY CLEANER Gender Identity Female 10/18/2022 12:19 PM BODY CLEANER Sexual Orientation Straight 10/18/2022 12 :19 PM BODY CLEANER Last Filed Vital Signs Vital Sign Reading [...] 10/20/2023 2:24 PM CDT Plan of Treatment Not on file Medical Devices Implanted Type Area Detail Drafter Device Identifier Shelf Expiration Date Model / Serial / Lot Ear Tubes (E.G. Pe Tubes)- 5 Implanted:08/1994 (Quantity not on file) Ear Tubes (e.g. PE Tubes) Bilateral : Ear Description:Took out the Sta pes Bone in each Ear and replaced with Tubes - Insurance [facility] MED[facility]ARE
--- NOTE | 2024-06-28 14:30 | MR_ITS ---
Patient: TISHA WHARTON Facility:?[facility] Patient ID:?[id number] Site Patient [id number]:?[id number]. Site :?[id number] Study:?MRI-Shoulder Right W/O-06/28/2024 4:20:17 PM Ordering Physician:Elvira Vela Final Report: EXAM: MRI OF THE RIGHT SHOULDER WITHOUT CONTRAST CLINICAL INDICATION: Right shoulder tendonitis. COMPARISON PLAIN FILMS: None available at time of interpretation. COMPARISON CROSS-SECTIONAL IMAGING STUDIES: 07/13/2020 MRI. TECHNICAL: Axial, sagittal oblique and coronal oblique T1, PD, PD FS and T2-weighted images. Shoulder surface coil. FINDINGS: ROTATOR CUFF TENDONS AND MUSCLES AND DELTOID: Supraspinatus: Mild fraying and fibrillation of the bursal surface of the supraspinatus tendon. Moderate diffuse increased signal consistent with tendinopathy. Findings are stable. No tendon tear. No muscle atrophy or edema. Infraspinatus: Mild increased signal consistent with tendinopathy. No tendon tear. No muscle atrophy or edema. Subscapularis: Mild increased signal consistent with tendinopathy. No tendon tear. No muscle atrophy or edema. Teres Minor: No tendinosis, tendon tearing, muscle atrophy or muscle edema. Deltoid: No muscle atrophy or edema. BURSA: Subacromial-subdeltoid: Moderate amount of fluid in the subacromial subdeltoid bursa has increased in the interval. Findings consistent with bursitis. BICEPS TENDON, LONG HEAD: Mild tendinopathy is new. No tendon tear. No medial subluxation. CORACOACROMIAL ARCH: Acromial Morphology: Type 1 acromial morphology. No abnormal lateral or anterior downward sloping of the acromion. No significant subacromial spur. No os acromiale. Acromiohumeral Interval: Normal. Coracohumeral Interval: Normal. ACROMIOCLAVICULAR JOINT REGION: AC Joint: Moderate arthropathy. No inferior marginal osteophytes. Ligaments: The coracoclavicular ligaments are intact. GLENOHUMERAL JOINT: Joint space: Small to moderate-sized joint effusion with mild synovitis. Findings have slightly progressed. Humeral Head Articular Cartilage: Moderate to full-thickness chondromalacia with mild hypertrophic change. Findings have progressed. Glenoid Articular Cartilage: Moderate to full-thickness chondromalacia. Findings have progressed. Labrum: No labral tear or paralabral cyst. Alignment: Maintained. Capsule: No capsular edema or abnormal capsular thickening. OSSEOUS STRUCTURES: No fracture, marrow edema or marrow replacement process. OTHER FINDINGS: There is no abnormality within the suprascapular or spinoglenoid notches nor within the quadrilateral space. No axillary adenopathy or mass. IMPRESSION: 1. Mild fraying and fibrillation of the bursal surface of the supraspinatus tendon with moderate tendinopathy. Findings are stable. 2. Stable infraspinatus and subscapularis tendinopathy. 3. New long head of biceps tendinopathy. 4. Progressive glenohumeral osteoarthritis with moderate to high-grade chondromalacia, joint effusion and synovitis. 5. Subacromial subdeltoid bursitis has progressed. 6. Moderate arthropathy in the acromioclavicular joint. Dictated by Dane Bustamante MD @ 06/29/2024 12:24:52 PM Signed by:?Dane Bustamante MD @06/29/2024 12:24:52 PM (Electronic Signature)
== END 2024-06-28 14:01 | disposition home or self-care (01) ==
LOC: MRI 14:01
PROVIDERS: PCP Family Medicine; Visit Provider Family Medicine
DX: M25.511 Pain in right shoulder (principal); M19.011 Primary osteoarthritis, right shoulder; M75.51 Bursitis of right shoulder; M75.21 Bicipital tendinitis, right shoulder; M77.8 Other enthesopathies, not elsewhere classified
CPT/HCPCS: 73221